=== PATIENT | female | born 1935 | race Caucasian/White ===

== ENCOUNTER 2019-12-04 15:54 | Emergency (ER) | payer MEDICARE, BC ==
[~2019-12-04] VITALS: Ht 157.5 cm; Wt 66.7 kg
[2019-12-04 17:03] VITALS: BP 134/65
--- NOTE | 2019-12-04 17:24 | PHYS DOC ---
Past History Past Medical History: No Pertinent History Past Surgical History: Appendectomy, Cholecystectomy, Coronary Bypass Surgery, Tonsillectomy Alcohol Use: None Drug Use: None Adult General Chief Complaint Chief Complaint: MECHANICAL FALL HPI HPI 84-year-old female presents after fall. The patient had a ground-level fall at [facility] 2 days ago. She tripped over a tele-was on the floor while trying to show her granddaughter something. She hit her face against the dresser. She went to see her hairdresser today and her hairdresser was very distressed about the bruising on the patient's face and thought she should be seen. The patient attempted to go to urgent care and they sent her to the emergency room. The patient was not knocked unconscious. She has not had a headache at all. No vomiting or dizziness. She has been functioning well last 2 days. She feels fine. She is on no blood thinners or antiplatelets medications. Review of Systems Review of Systems Constitutional: Denies fever or chills [] Eyes: Denies change in visual acuity, redness, or eye pain [] HENT: Ecchymosis of the left periorbital area[] Respiratory: Denies cough or shortness of breath [] Cardiovascular: No additional information not addressed in HPI [] GI: Denies abdominal pain, nausea, vomiting, bloody stools or diarrhea [] : Denies dysuria or hematuria [] Musculoskeletal: Denies back pain or joint pain [] Integument: Denies rash or skin lesions [] Neurologic: Denies headache, focal weakness or sensory changes [] Endocrine: Denies polyuria or polydipsia [] All other systems were reviewed and found to be within normal limits, except as documented in this note. Allergies Allergies Allergies Coded Allergies Type Severity Reaction Last Updated Verified Sulfa (Sulfonamide Antibiotics) Allergy Severe 12/04/19 Yes penicillin G Allergy Intermediate 12/04/19 Yes gentamicin Allergy Unknown 12/04/19 Yes Physical Exam Physical Exam Constitutional: Well developed, well nourished, no acute distress, non-toxic appearance. [] HENT: Normocephalic, atraumatic, bilateral external ears normal, oropharynx moist, no oral exudates, nose normal. [] Eyes: Ecchymosis around the left eye and periorbital area.[] Neck: Normal range of motion, no tenderness, supple, no stridor. [] Cardiovascular:Heart rate regular rhythm, no murmur [] Lungs & Thorax: Bilateral breath sounds clear to auscultation [] Abdomen: Bowel sounds normal, soft, no tenderness, no masses, no pulsatile masses. [] Skin: Warm, dry, no erythema, no rash. [] Back: No tenderness, no CVA tenderness. [] Extremities: No tenderness, no cyanosis, no clubbing, ROM intact, no edema. [] Neurologic: Alert and oriented X 3, normal motor function, normal sensory function, no focal deficits noted. [] Psychologic: Affect normal, judgement normal, mood normal. [] Current Patient Data Vital Signs Vital Signs Date Time Temp Pulse Resp B/P (MAP) Pulse Ox O2 Delivery O2 Flow Rate FiO2 12/04/19 17:03 65 15 134/65 (88) 99 12/04/19 16:24 98.8 Room Air EKG EKG [] Radiology/Procedures Radiology/Procedures [] Course & Med Decision Making Course & Med Decision Making Pertinent Labs and Imaging studies reviewed. (See chart for details) Patient has significant ecchymosis around the left eye, but absolutely no other findings that are significant on physical exam. She is extremely mentally acute and is having no difficulty with function or ambulation. She is not at increased risk because she is not on any blood thinners or anticoagulants. I offered the patient a CT scan if she wanted to, however do not feel it is actually necessary. The patient does not feel like it is necessary either. She does came here to make her hairdresser feel better. He has no concerning symptoms. She stable for discharge at this time. [] Dragon Disclaimer Dragon Disclaimer This electronic medical record was generated, in whole or in part, using a voice recognition dictation system. Departure Departure: Impression: Primary Impression: Fall from slip, trip, or stumble Additional Impression: Periorbital ecchymosis of left eye Disposition: 01 HOME, SELF-CARE Condition: STABLE Referrals: BETH DONALDSON MD (PCP) Patient Instructions: Eye Contusion, [id number]-ny-[id number] Problem Qualifiers Primary Impression: Fall from slip, trip, or stumble Encounter type: initial encounter Qualified Codes: W01.0XXA - Fall on same level from slipping, tripping and stumbling without subsequent striking against object, initial encounter Additional Impression: Periorbital ecchymosis of left eye Encounter type: initial encounter Qualified Codes: S00.12XA - Contusion of left eyelid and periocular area, initial encounter BERNY STUBBS DO Dec 04, 2019 17:24
== END 2019-12-04 17:47 | disposition home or self-care (01) ==
LOC: ER 15:54
DX: S00.12XA Contusion of left eyelid and periocular area, initial encounter (principal); Z88.2 Allergy status to sulfonamides; Z88.0 Allergy status to penicillin; Z88.1 Allergy status to other antibiotic agents; W01.0XXA Fall on same level from slipping, tripping and stumbling without subsequent striking against object, initial encounter; Y93.89 Activity, other specified; Y92.89 Other specified places as the place of occurrence of the external cause; Y99.8 Other external cause status
CPT/HCPCS: 99281

== ENCOUNTER 2021-05-27 22:24 | Emergency (ER) | payer MEDICARE, BC ==
[~2021-05-27] VITALS: Ht 157.5 cm; Wt 74.5 kg
--- NOTE | 2021-05-27 22:29 | PHYS DOC ---
Past History Past Medical History: No Pertinent History, Arthritis Past Surgical History: Appendectomy, Cholecystectomy, Coronary Bypass Surgery, Tonsillectomy Alcohol Use: None Drug Use: None General Adult HPI: HPI: ".. I tripped on some shoe.. got tangle foot.. and went down on my face.. tore up my arms.. banged my head... off he coffee table.. and hurt my back.. I tried to get the bleeding stopped .,. but then I got thinking before I should go to be.. '' probably need to get checked. 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 Patient has approximate 2 to 3 cm laceration forehead to the bone level. Has skin tears to both forearms. Patient does have cervical, mid back pain thoracic and lumbar . Pt. states she is having more frequent falls... Patient denies any loss of consciousness. No recent travel. No specific ill contacts. Patient has had previous fall in 2019 in November. I had a fever chills. Patient denies any recent travel. Patient has a past medical history of appendectomy, cholecystectomy coronary artery bypass surgery, tonsillectomy,. Pt. has hx of 4 hard falls in six months. Pt. follows with Dr. Juan Duff. Review of Systems: Review of Systems: Constitutional: Denies fever or chills Eyes: Denies change in visual acuity HENT: Denies nasal congestion or sore throat Respiratory: Denies cough or shortness of breath Cardiovascular: Denies chest pain or edema GI: Denies abdominal pain, nausea, vomiting, bloody stools or diarrhea : Denies dysuria Musculoskeletal: Denies back pain or joint pain Integument: Denies rash Neurologic: Denies headache, focal weakness or sensory changes Endocrine: Denies polyuria or polydipsia Lymphatic: Denies swollen glands Psychiatric: Denies depression or anxiety Family History: Family History: Noncontributory presentation Current Medications: Current Meds: See nursing for home meds Allergies: Allergies: Allergies Coded Allergies Type Severity Reaction Last Updated Verified Sulfa (Sulfonamide Antibiotics) Allergy Severe 12/04/19 Yes penicillin G Allergy Intermediate 12/04/19 Yes gentamicin Allergy Unknown 12/04/19 Yes Physical Exam: PE: Constitutional: Moderate acute distress, non-toxic appearance. [] HENT: Normocephalic, 3 cm laceration to the periosteum in middle of fore head, bilateral external ears normal, oropharynx moist, no oral exudates, nose normal. [] Eyes: PERRLA, EOMI, conjunctiva normal, no discharge. [] Neck: Normal range of motion, no tenderness, supple, no stridor. Some upper neck tenderness Cardiovascular:Heart rate regular rhythm, no murmur, PMI to the left Lungs & Thorax: Bilateral breath sounds apex on auscultation [] Abdomen: Bowel sounds normal, soft, no tenderness, no masses, no pulsatile masses. No surgical scars. Skin: Warm, dry, no erythema, no rash. 4 turgor. Skin tears both forearms. Contusions to back. Back: mid throacic and lumbar tenderness, no CVA tenderness. [] Extremities: No tenderness, no cyanosis, no clubbing, ROM intact, no edema. Arthritic changes. Neurologic: Alert and oriented X 3, moves extremities on request, has history of symmetric, was amatory without problems., no focal deficits noted. Slightly shuffling gait. Psychologic: Affect anxious, judgement normal, mood normal. [] EKG: EKG: [] Radiology/Procedures: Radiology/Procedures: [][place] [address] IMAGING REPORT Signed PATIENT: CIRILO DOUGLASS ACCOUNT: [id number] : 1935 LOCATION: ER AGE: 85 SEX: F EXAM STATUS: REG ER ORD. PHYSICIAN: NASRIN MARTINEZ MD REASON: trip and fall head injury PROCEDURE: CT THORACIC SPINE WO CONTRAST Exam: CT head, cervical spine, thoracic spine and lumbar spine without contrast INDICATION: Fall, head injury TECHNIQUE: Sequential axial images through the head, cervical spine, thoracic spine and lumbar spine were obtained without the administration of IV contrast. Exposure: One or more of the following in the visualized dose reduction techniques were utilized for this examination: 1. Automated exposure control 2. Adjustment of the MA and/or KV according to patient size 3. Use of iterative of reconstructive technique Comparisons: None FINDINGS: Head: Evaluation limited secondary to patient motion. No large focal parenchymal lesion or hemorrhage is identified. There is no midline shift or sulcal effacement. No large acute vascular territory infarction is identified. Young-white distinction is preserved. The ventricular system is within normal limits without compression hydrocephalus. The basal cisterns are well maintained. The visualized portions of the paranasal sinuses and mastoid air cells are well- pneumatized. No acute fractures. Cervical spine: Vertebral body heights and alignment are well-maintained. Fracture to the cervical spine is not identified. Multilevel spondylotic change in cervical spine with degenerative disc disease greatest at C5-C6 and C6-C7. Visualized paraspinal soft tissues are unremarkable. Thoracic spine: Vertebral body heights and alignment are well-maintained. Fracture to the thoracic spine is not identified. No significant spondylotic changes lumbar spine. Visualized paraspinal soft tissues are unremarkable. Lumbar spine: Vertebral body heights are well-maintained. Grade 1/2 anterolisthesis of L4 on L5. Fracture to the lumbar spine is not identified. Degenerative disc disease in the lumbar spine greatest at L3-L4 and L4-L5. Mild bilateral central arthropathy is also noted. Visualized paraspinal soft tissues are unremarkable. IMPRESSION: 1. No acute intracranial abnormality. 2. Negative CT C-spine for acute traumatic injury. 3. Negative CT T spine for acute traumatic injury. 4. Negative CT L-spine for acute traumatic injury. Electronically signed by: Bartolo Conn MD (05/27/2021 11:41 PM) [facility] DICTATED AND SIGNED BY: BARTOLO CONN MD DATE: 05/27/21 [id number] CC: NASRIN MARTINEZ MD; BETH DUFF MD ~MTH0 0 Heart Score: C/O Chest Pain: N/A Risk Factors: Risk Factors: DM, Current or recent (<one month) smoker, HTN, HLP, family history of CAD, obesity. Risk Scores: Score 0 - 3: 2.5% MACE over next 6 weeks - Discharge Home Score 4 - 6: 20.3% MACE over next 6 weeks - Admit for Clinical Observation Score 7 - 10: 72.7% MACE over next 6 weeks - Early Invasive Strategies Course & Med Decision Making: Course & Med Decision Making Pertinent Labs and Imaging studies reviewed. (See chart for details) Procedure note-suture repair-area of laceration on forehead clean normal saline. Did apply Betadine on the edge of wound. We irrigated the with normal saline extensively. Closed with 4 internal simple sutures and 8 external simple sutures with 4-0 Vicryl.. Antibiotic applied. Forearm lesions cleaned and dressed with antibiotic ointment. Patient return if any increase nausea and vomiting. Or any other symptoms. Monitor for infection. Patient apply Polysporin to wound 4 times a day until clean. Follow-up primary care. Sutures will dissolve would not have to be removed. Impression: 1. Trip and Fall 2. Contusions 3. Forehead laceration 3 cm 4. Bilateral forearm skin tears [] Dragon Disclaimer: Dragon Disclaimer: This electronic medical record was generated, in whole or in part, using a voice recognition dictation system. Departure Departure: Referrals: BETH DUFF MD (PCP) Dragon Disclaimer This chart was dictated in whole or in part using Voice Recognition software in a busy, high-work load, and often noisy Emergency Department environment. It may contain unintended and wholly unrecognized errors or omissions. Dragon Disclaimer This chart was dictated in whole or in part using Voice Recognition software in a busy, high-work load, and often noisy Emergency Department environment. It may contain unintended and wholly unrecognized errors or omissions. Dragon Disclaimer This chart was dictated in whole or in part using Voice Recognition software in a busy, high-work load, and often noisy Emergency Department environment. It may contain unintended and wholly unrecognized errors or omissions. NASRIN MARTINEZ MD May 27, 2021 22:29
[2021-05-27] MEDS ORDERED: LIDOCAINE 2% 20 ML VIAL. IJ ONE (22:45)
[2021-05-27] MEDS ORDERED: oxyCODONE/APAP 5/325 1 TAB TABLET PO ONE (22:45)
[2021-05-27] MEDS ORDERED: TETANUS AND DIPHTHERIA TOX/PF 0.5 ML VIAL. VAX IM ONE (23:15)
[2021-05-27] MEDS ORDERED: BACITRACIN ZINC TOPICAL OINT PACKET. TP ONE (23:31)
--- NOTE | 2021-05-27 23:43 | RAD ---
Exam: CT head, cervical spine, thoracic spine and lumbar spine without contrast INDICATION: Fall, head injury TECHNIQUE: Sequential axial images through the head, cervical spine, thoracic spine and lumbar spine were obtained without the administration of IV contrast. Exposure: One or more of the following in the visualized dose reduction techniques were utilized for this examination: 1. Automated exposure control 2. Adjustment of the MA and/or KV according to patient size 3. Use of iterative of reconstructive technique Comparisons: None FINDINGS: Head: Evaluation limited secondary to patient motion. No large focal parenchymal lesion or hemorrhage is identified. There is no midline shift or sulcal ef facement. No large acute vascular territory infarction is identified. Young-white distinction is preserved. The ventricular system is within normal limits without compression hydrocephalus. The basal cisterns are well maintained. The visualized portions of the paranasal sinuses and mastoid air cells are well-pneumatized. No acute fractures. Cervical spine: Vertebral body heights and alignment are well-maintained. Fracture to the cervical spine is not identified. Multilevel spondylotic change in cervical spine with degenerative disc disease greatest at C5-C6 and C6-C7. Visualized paraspinal soft tissues are unremarkable. Thoracic spine: Vertebral body heights and alignment are well-maintained. Fracture to the thoracic spine is not identified. No significant spondylotic changes lumbar spine. Visualized paraspinal soft tissues are unremarkable. Lumbar spine: Vertebral body heights are well-maintained. Grade 1/2 anterolisthesis of L4 on L5. Fracture to the lumbar spine is not identified. Degenerative disc disease in the lumbar spine greatest at L3-L4 and L4-L5. Mild bilateral central art hropathy is also noted. Visualized paraspinal soft tissues are unremarkable. IMPRESSION: 1. No acute intracranial abnormality. 2. Negative CT C-spine for acute traumatic injury. 3. Negative CT T spine for acute traumatic injury. 4. Negative CT L-spine for acute traumatic injury. Electronically signed by: Bartolo Andre MD (05/27/2021 11:41 PM) [facility]
[2021-05-28 00:15] VITALS: BP 152/68
--- NOTE | 2021-05-28 04:03 | RAD ---
Chest, PA and Lateral: Technique: PA and lateral views of the chest were obtained. History: Chest pain. Comparison: None. Findings: The heart and pulmonary vasculature appear within normal limits. Mild bibasilar lung airspace opacit ies.. The pleural margins are clear. Impression: Mild bibasilar lung airspace opacities likely atelectasis or infiltrates.. Electronically signed by: Yevgeniy Cunningham MD (05/28/2021 4:00 AM) [id number]
[2021-05-28] MEDS ORDERED: MUPIROCIN 2% TOPICAL OINTMENT 22GM TUBE. TP SCH (09:00)
== END 2021-05-28 00:30 | disposition home or self-care (01) ==
LOC: ER 22:24
DX: S01.81XA Laceration without foreign body of other part of head, initial encounter (principal); Z88.0 Allergy status to penicillin; Z88.2 Allergy status to sulfonamides; Z90.49 Acquired absence of other specified parts of digestive tract; W01.0XXA Fall on same level from slipping, tripping and stumbling without subsequent striking against object, initial encounter; Y93.89 Activity, other specified; Y92.89 Other specified places as the place of occurrence of the external cause; Y99.8 Other external cause status
CPT/HCPCS: 12013; 70450; 71046; 72125; 72128; 72131; 90471; 90714; 99285-25

== ENCOUNTER 2021-06-19 10:12 | Emergency (ER) | payer MEDICARE, BC ==
[~2021-06-19] VITALS: Ht 160 cm; Wt 72.7 kg
[2021-06-19 10:42] VITALS: BP 135/94
--- NOTE | 2021-06-19 10:45 | PHYS DOC ---
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 States she was at home this morning at about 8:00, slipped down 2 stairs and landed on the left side of her head. States she had immediate swelling in the area. States it is tender, about 3 out of 10, dull and achy in nature with no radiation. States she also has some pain in her left forearm, 2 out of 10, dull and achy in nature as she landed on her left side. Denies head injury, syncope, chest pain, shortness of breath, abdominal pain, nausea, vomiting. Denies any numbness/weakness and tingling. Denies any trouble sitting, standing or walking. States she otherwise feels well and would have came in except for the swelling. Review of Systems Review of Systems Review of systems otherwise unremarkable except noted in HPI Allergies Allergies Allergies Coded Allergies Type Severity Reaction Last Updated Verified Sulfa (Sulfonamide Antibiotics) Allergy Severe 05/27/21 Yes penicillin G Allergy Intermediate 05/27/21 Yes gentamicin Allergy Unknown 05/27/21 Yes Physical Exam Physical Exam Constitutional: Well developed, well nourished, no acute distress, non-toxic appearance. [] HENT: Normocephalic, atraumatic, oropharynx moist, no oral exudates, nose normal. [] Eyes: PERRLA, EOMI, conjunctiva normal, no discharge. [] Neck: Normal range of motion, no tenderness, supple, no stridor. [] Cardiovascular:Heart rate regular rhythm, no murmur [] Lungs & Thorax: Bilateral breath sounds clear to auscultation [] Abdomen: soft, no tenderness, no masses, no pulsatile masses. [] Skin: Warm, dry, no erythema, no rash. [] Back: No tenderness throughout the entirety of the spine, no bruising, no deformities, range of motion normal, no CVA tenderness. [] Extremities: Left forearm tenderness with no obvious deformities, bruising, no cyanosis, no clubbing, ROM intact, no edema.has an approximately 5 cm, soft, brown, fluctuant mass over left greater trochanter suspicious for hematoma. Neurovascular exam intact [] Neurologic: Alert and oriented X 3, normal motor function, normal sensory function, able to sit, stand and walk without issue, no focal deficits noted. [] Psychologic: Affect normal, judgement normal, mood normal. [] EKG EKG [] Radiology/Procedures Radiology/Procedures []XAM: Pelvis and left hip, 3 views; left femur, 2 views. HISTORY: Fall. Pain. COMPARISON: None. FINDINGS: A frontal view of the pelvis and frontal and frog-leg views of the left hip and frontal and lateral views of the left femur are obtained. No fracture is seen. No lytic or sclerotic osseous lesion is seen. There is mild medial compartment joint space narrowing of the left knee. There is lumbar scoliosis and degenerative change at the lower lumbar levels. There is moderate colonic and rectal stool. IMPRESSION: No acute osseous finding. Electronically signed by: Yandy Restrepo MD (06/19/2021 10:59 AM) [id number] EXAM: Left forearm, 2 views. HISTORY: Fall. COMPARISON: None. FINDINGS: 2 views of the lentiform are obtained. There is no fracture, dislocation or subluxation. There is severe first carpometacarpal osteoarthritis with joint space narrowing and subchondral sclerosis, not formally assessed on this exam. IMPRESSION: No acute osseous finding. Electronically signed by: Yandy Restrepo MD (06/19/2021 11:09 AM) [id number] Heart Score C/O Chest Pain: No Risk Factors: Risk Factors: DM, Current or recent (<one month) smoker, HTN, HLP, family hi story of CAD, obesity. Risk Scores: Risk Factors: DM, Current or recent (<one month) smoker, HTN, HLP, family history of CAD, obesity. Course & Med Decision Making Course & Med Decision Making Patient is an 85-year-old female who presents after a fall with left hip and forearm pain Vital signs not concerning. Physical exam noted above. Patient on no anticoagulation. Does take aspirin. Denies any head injuries, syncope. Neurovascular exam and neurologic exam intact. Patient denies need for pain or nausea medicine at this time. Imaging of areas of concern with no acute osseous abnormalities. Discussed all findings with patient. Advised to follow-up first thing in the morning with primary care physician. Gave strict return precautions to the ED. Patient grateful, verbalized understanding and agreed with plan of discharge. [] Dragon Disclaimer Dragon Disclaimer This electronic medical record was generated, in whole or in part, using a voice recognition dictation system. Departure Departure: Impression: Primary Impression: Fall Disposition: HOME / SELF CARE / HOMELESS Condition: GOOD Referrals: TOOTIE DAVILA (PCP) Patient Instructions: Fall Prevention and Home Safety, Hematoma Additional Instructions: Thank you for coming into the emergency department today and allowing us to take care of you. Please read the attached information above very carefully to go back over what we discussed. You can use Tylenol and ice as needed for symptom control at home as discussed. Please call your primary care physician first thing in the morning and set up a follow-up visit as soon as you can, preferably tomorrow for reevaluation. Please come back to the emergency department immediately with new or concerning symptoms as we discussed. LEE ALVA MD Jun 19, 2021 10:45
--- NOTE | 2021-06-19 11:02 | RAD ---
EXAM: Pelvis and left hip, 3 views; left femur, 2 views. HISTORY: Fall. Pain. COMPARISON: None. FINDINGS: A frontal view of the pelvis and frontal and frog-leg views of the left hip and frontal and lateral views of the left femur are obtained. No fracture is seen. No lytic or sclerotic osseous les ion is seen. There is mild medial compartment joint space narrowing of the left knee. There is lumbar scoliosis and degenerative change at the lower lumbar levels. There is moderate colonic and rectal s tool. IMPRESSION: No acute osseous finding. Electronically signed by: Yandy Restrepo MD (06/19/2021 10:59 AM) [id number]
--- NOTE | 2021-06-19 11:11 | RAD ---
EXAM: Left forearm, 2 views. HISTORY: Fall. COMPARISON: None. FINDINGS: 2 views of the lentiform are obtained. There is no fracture, dislocation or subluxation. Th ere is severe first carpometacarpal osteoarthritis with joint space narrowing and subchondral scleros is, not formally assessed on this exam. IMPRESSION: No acute osseous finding. Electronically signed by: Yandy Restrepo MD (06/19/2021 11:09 AM) [id number]
== END 2021-06-19 11:26 | disposition home or self-care (01) ==
LOC: ER 10:12
DX: R22.0 Localized swelling, mass and lump, head (principal); Z88.0 Allergy status to penicillin; Z88.2 Allergy status to sulfonamides; Z90.49 Acquired absence of other specified parts of digestive tract; Z98.51 Tubal ligation status; W10.8XXA Fall (on) (from) other stairs and steps, initial encounter; Y93.89 Activity, other specified; Y92.89 Other specified places as the place of occurrence of the external cause; Y99.8 Other external cause status
CPT/HCPCS: 73090; 73502; 73552; 99284-25

== ENCOUNTER → 2021-07-22 | Outpatient (CLI) | payer MEDICARE, BC ==
--- NOTE | 2021-07-22 13:52 | RAD ---
EXAM: Left hip sonogram. HISTORY: Lump. Fall. TECHNIQUE: Sonographic imaging of the left hip at the site of palpable concern was performed. COMPARISON: None. FINDINGS: There is a complex fluid collection within the hip soft tissues at the site of palpable con cern measuring 5.2 x 3.7 x 1.5 cm, the appearance of which favors a hematoma. No additional lesion is seen. IMPRESSION: 5.2 cm soft tissue hematoma within the hip soft tissues at the site of palpable concern. Continued clinical follow-up of palpable abnormalities is recommended. Electronically signed by: Yandy Restrepo MD (07/22/2021 1:49 PM) [id number]
== END ==
LOC: US 11:38
PROVIDERS: ATTEND Internal Medicine
DX: M79.81 Nontraumatic hematoma of soft tissue (principal)
CPT/HCPCS: 76881

== ENCOUNTER → 2021-11-01 | Outpatient (CLI) | payer MEDICARE, BC ==
--- NOTE | 2021-11-01 11:53 | RAD ---
EXAMINATION: CT Chest Without IV contrast. INDICATION:85 years, Female, interstitial lung disease . COMPARISON: CT thoracic spine dated 05/27/2021. TECHNIQUE: Spiral CT was obtained from the jugular notch through the posterior costophrenic recess. S agittal and coronal reformats were obtained. Exposure: One or more of the following individualized dose reduction techniques were utilized for thi s examination: 1. Automated exposure control 2. Adjustment of the mA and/or kV according to patient size 3. Use of iterative reconstruction technique. FINDINGS: LUNGS/PLEURA: Central airways are patent. Dependent bibasilar subsegmental atelectasis and/or scarrin g. Faint patchy areas of groundglass opacities in the right upper and lower lobes. No focal consolida tion, pleural effusion or pneumothorax. No pulmonary fibrosis, honeycombing or bronchiectasis. Calcif ied granuloma the right middle lobe. There is a 3 mm solid pulmonary nodule anterior right upper lobe (image 29). MEDIASTINUM: No pathologic mediastinal or hilar adenopathy. The thoracic aorta and pulmonary arteries are normal in caliber. Mild cardiomegaly. No pericardial effusion. 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 The visualized thyroid and the esophagus are unremarkable. AXILLA/SOFT TISSUE: No supraclavicular or axillary adenopathy. Regional soft tissues are within fernanda l limits. UPPER ABDOMEN: Stable 2.3 cm simple appearing cyst in the upper pole right kidney. BONES: No evidence of acute fractures or aggressive osseous lesions. Post CABG changes. Multilevel de generative changes in the spine. Mild diffuse superior. IMPRESSION: 1. Faint patchy areas of groundglass opacities in the right upper and lower lobes. This is nonspecif ic but may be seen with infectious/inflammatory process. 2. 3 mm solid pulmonary nodule in the right upper lobe. High-risk patient, recommend one-year follow -up with CT chest. 3. Mild cardiomegaly. Electronically signed by: Elizabeth Lang MD (11/01/2021 11:50 AM) [facility]
== END ==
LOC: CT 09:38
PROVIDERS: ATTEND Internal Medicine Critical Care Medicine
DX: R91.1 Solitary pulmonary nodule (principal); I51.7 Cardiomegaly; R91.8 Other nonspecific abnormal finding of lung field; I25.10 Atherosclerotic heart disease of native coronary artery without angina pectoris; J84.10 Pulmonary fibrosis, unspecified; M47.819 Spondylosis without myelopathy or radiculopathy, site unspecified; Z95.1 Presence of aortocoronary bypass graft
CPT/HCPCS: 71250

== ENCOUNTER → 2021-11-25 | Outpatient (CLI) | payer MEDICARE, BC ==
--- NOTE | 2021-11-25 12:25 | RAD ---
MR#: [id number] Date of Study: 11/25/2021 Ordering Physician: PILAR GUERRA, Referring Physician: PILAR GUERRA, Tech: Letitia Britton RVT,[facility] APPROVED REPORT Patient Location : OUT-PATIENT Medications Eliquis Critical Notification Critical Value: No <Conclusion> FINDINGS Grayscale images of bilateral saphenofemoral junctions and superficial veins both lower extremities a re grossly unremarkable without any evidence of thrombus. Spectral waveform and color duplex analysi s did not show any significant reflux in bilateral greater and lesser saphenous veins. CONCLUSIONS Lower extremity venous reflux study did not show any significant insufficiency involving bilateral gr eater or lesser saphenous veins. Signed by : Fabian Hensley, Electronically Approved : 11/25/2021 12:24:47
== END ==
LOC: US 09:35
PROVIDERS: ATTEND Internal Medicine Cardiovascular Disease
DX: I87.2 Venous insufficiency (chronic) (peripheral) (principal)
CPT/HCPCS: 93970